=== PATIENT | male | born 2005 | race Caucasian/White ===

== ENCOUNTER 2024-02-19 23:39 | Emergency (ER) | payer OTHER ==
[~2024-02-19] VITALS: Ht 180.3 cm; Wt 63.6 kg
[2024-02-19 23:47] VITALS: TEMP 98.5
[2024-02-20] MEDS ORDERED: Amoxicillin 500 MG CAP PO ONE (00:30)
[2024-02-20] MEDS ORDERED: AMOXICILLIN 50500 MG PO (00:43)
[2024-02-20] MEDS ORDERED: Ketorolac 60 MG/2 ML VIAL IM ONE (00:45)
[2024-02-20 00:50] VITALS: BP 138/80; PULSE 62
== END 2024-02-20 00:50 | disposition home or self-care (01) ==
LOC: COL.ER 23:39
DX: K02.9 Dental caries, unspecified (principal)
CPT/HCPCS: J1885